=== PATIENT | female | born 1950 | race African-American/Black ===

== ENCOUNTER 2019-09-08 12:18 | Emergency (ER) | payer OTHER ==
[~2019-09-08] VITALS: Ht 154.9 cm; Wt 94.8 kg
[2019-09-08 12:29] VITALS: BP 125/80
[2019-09-08] MEDS ORDERED: methylPREDNISolone SOD SUCC 125 MG/2 ML VL IM ONE (14:45)
== END 2019-09-08 14:55 | disposition home or self-care (01) ==
LOC: ER 12:18
DX: M48.061 Spinal stenosis, lumbar region without neurogenic claudication (principal); M54.16 Radiculopathy, lumbar region
CPT/HCPCS: 72131; 96372; 99284; J2930

== ENCOUNTER 2019-10-23 03:52 | Emergency (ER) | payer OTHER ==
[~2019-10-23] VITALS: Ht 154.9 cm; Wt 86.2 kg
[2019-10-23 07:02] VITALS: BP 152/68
== END 2019-10-23 07:33 | disposition home or self-care (01) ==
LOC: ER 03:52
DX: M54.16 Radiculopathy, lumbar region (principal); E78.5 Hyperlipidemia, unspecified; I10 Essential (primary) hypertension; Z86.73 Personal history of transient ischemic attack (TIA), and cerebral infarction without residual deficits
CPT/HCPCS: 73502